=== PATIENT | male | born 1980 | race Caucasian/White ===

== ENCOUNTER → 2021-09-21 | Emergency (ER) | payer MEDICAID ==
[2021-09-21 19:54] VITALS: BP_SYST 118
--- NOTE | 2021-09-21 20:50 | NUR ---
Upon placing patient in room (room was being cleaned). Patient asked to have clothes removed and to place in a hospital gown. Also patient was asked to remove all products in his pockets and if he had any weapons. Patient removed products (cell phone, fusing machine tender, cigarettes) placed items on bed but then stated that he is refusing to have all items removed from him and that he wants to go to another facility. Patient was informed that MD will be notified and it will be known that possibly [employer] will be called for his and public safety. Patient walked out of the ER, MD notified. Patient eloped.
--- NOTE | 2021-09-21 20:55 | NUR ---
Patient left without being seen.
== END | disposition left against medical advice (07) ==
LOC: SED 19:54
DX: R45.851 Suicidal ideations (principal); F41.9 Anxiety disorder, unspecified; Z53.21 Procedure and treatment not carried out due to patient leaving prior to being seen by health care provider